=== PATIENT | female | born 1955 | race Caucasian/White ===

== ENCOUNTER 2019-11-19 09:56 | Emergency (ER) | payer BC, MEDICAID ==
[~2019-11-19] VITALS: Ht 162.6 cm; Wt 81.4 kg
[~2019-11-19 09:56] MED LIST: ASPI-1265 PO; EST1T PO; PROG100C11 PO; SERT-128 PO; ZES10T PO
[2019-11-19 10:13] VITALS: BP 147/97
[2019-11-19] MEDS ORDERED: DOXY100C76 PO (12:07)
[2019-11-19] MEDS ORDERED: LACT1CAP60 PO (12:07)
== END 2019-11-19 12:20 | disposition home or self-care (01) ==
LOC: ER 09:56
DX: S50.812A Abrasion of left forearm, initial encounter (principal); S50.811A Abrasion of right forearm, initial encounter; Z88.0 Allergy status to penicillin; Z79.82 Long term (current) use of aspirin; Z79.899 Other long term (current) drug therapy; W55.01XA Bitten by cat, initial encounter; Y93.89 Activity, other specified; Y92.89 Other specified places as the place of occurrence of the external cause; Y99.8 Other external cause status
CPT/HCPCS: 99283

== ENCOUNTER 2022-12-09 16:27 | Emergency (ER) | payer MEDICARE, MEDICAID ==
[~2022-12-09] VITALS: Ht 167.6 cm; Wt 93.0 kg
[~2022-12-09 16:27] MED LIST changes: +LACT1CAP60 PO
[2022-12-09 16:37] VITALS: BP 122/73; PULSE 86; RESP 16; TEMP 98; O2SAT 98
[2022-12-10] MEDS ORDERED: HYDR-3973 PO (16:48)
== END 2022-12-09 19:56 | disposition home or self-care (01) ==
LOC: ER 16:28
DX: S62.102A Fracture of unspecified carpal bone, left wrist, initial encounter for closed fracture (principal); W31.89XA Contact with other specified machinery, initial encounter; Y93.89 Activity, other specified; Y92.89 Other specified places as the place of occurrence of the external cause; Y99.8 Other external cause status
CPT/HCPCS: 29125; 73110; 99283; A6446; A6449

== ENCOUNTER 2022-12-10 12:19 | Emergency (ER) | payer MEDICARE, MEDICAID ==
[~2022-12-10] VITALS: Ht 167.6 cm; Wt 90.0 kg
[2022-12-10 12:25] VITALS: BP 170/104; PULSE 89; O2SAT 99
[2022-12-10] MEDS ORDERED: HYDROcodone/acetaminophen 10/325mg tab PO ONE (16:45)
[2022-12-10] MEDS ORDERED: HYDR-3973 PO (16:48)
[2022-12-10] MEDS ORDERED: naproxen 500mg tablet PO ONE (16:50)
[2022-12-10 16:58] VITALS: RESP 18
[2022-12-10 17:01] VITALS: TEMP 97.8
--- NOTE | 2022-12-10 17:03 | NUR ---
pt seen provider before seeing nurse for eval
== END 2022-12-10 17:03 | disposition home or self-care (01) ==
LOC: ER 12:19
DX: S52.572D Other intraarticular fracture of lower end of left radius, subsequent encounter for closed fracture with routine healing (principal); Z88.0 Allergy status to penicillin; Z79.899 Other long term (current) drug therapy; X58.XXXD Exposure to other specified factors, subsequent encounter
CPT/HCPCS: 99283

== ENCOUNTER 2023-02-10 09:18 | Outpatient (CLI) | payer SELFPAY | END 2023-02-10 23:59 | disposition home or self-care (01) | LOC: VAS 09:18 | DX: Z13.6 Encounter for screening for cardiovascular disorders (principal) ==